=== PATIENT | male | born 1965 ===

== ENCOUNTER → 2021-03-11 12:42 | Outpatient (BNVA) | payer OTHER, SELFPAY | PROVIDERS: PCP Family Medicine; Visit Provider Psychiatry & Neurology Neurology | DX: G24.3 Spasmodic torticollis (principal) | CPT/HCPCS: 64616 ==

== ENCOUNTER → 2021-04-08 10:25 | Outpatient (BNVA) | payer OTHER, SELFPAY | PROVIDERS: PCP Family Medicine; Visit Provider Psychiatry & Neurology Neurology ==

== ENCOUNTER → 2021-06-13 13:23 | Outpatient (BNVA) | payer OTHER, SELFPAY | PROVIDERS: PCP Family Medicine; Visit Provider Psychiatry & Neurology Neurology | DX: G24.3 Spasmodic torticollis (principal) | CPT/HCPCS: 64616; J0585 ==

== ENCOUNTER → 2021-09-29 12:02 | Outpatient (BNVA) | payer OTHER, SELFPAY | PROVIDERS: PCP Family Medicine; Visit Provider Psychiatry & Neurology Neurology | DX: G24.3 Spasmodic torticollis (principal) | CPT/HCPCS: 64616; J0585 ==

== ENCOUNTER → 2022-01-02 12:53 | Outpatient (BNVA) | payer OTHER, SELFPAY | PROVIDERS: PCP Family Medicine; Visit Provider Psychiatry & Neurology Neurology | DX: G24.3 Spasmodic torticollis (principal) | CPT/HCPCS: 64616; J0585 ==

== ENCOUNTER → 2022-04-06 12:49 | Outpatient (BNVA) | payer OTHER, SELFPAY | PROVIDERS: PCP Family Medicine; Visit Provider Psychiatry & Neurology Neurology | DX: G24.3 Spasmodic torticollis (principal) | CPT/HCPCS: 64616; J0585 ==

== ENCOUNTER → 2022-07-05 12:24 | Outpatient (BNVA) | payer OTHER, SELFPAY | PROVIDERS: PCP Family Medicine; Visit Provider Psychiatry & Neurology Neurology | DX: G24.3 Spasmodic torticollis (principal) | CPT/HCPCS: 64616; J0585 ==

== ENCOUNTER 2022-10-17 07:36 | Outpatient (AMB) | payer OTHER, SELFPAY ==
--- NOTE | 2022-10-17 07:40 | MHC.OFFVIS ---
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 Side effects including spread of toxin effect, dysphagia, breathing difficulties , bronchitis etc was discussed in detail and the patient agreed to the procedure.An informed consent was obtained ??? Botulinum toxin type A 200units -was diluted with 4 cc of normal saline at a concentration of 25 units in 0.5cc saline. Lot number [id number] expiration 03/2025 ??? Muscles injected ???Left Splenius - 25 units each right levator 50 units right trapezius 25 units ??? left levator 75 units each Left CSM 25 units ? Total used 200 units PFSH Medical History HTN (hypertension) Tremors of nervous system Surgical History Hx of shoulder surgery Family History Father CAD (coronary artery disease) HTN (hypertension) Mother HTN (hypertension) Cancer Social History Alcohol intake: current Alcohol intake frequency: holidays/special occasions only Patient Tobacco Use Status: Never used Tobacco Physical Exam Vital Signs: Last Vital Signs Pulse 61 10/17/22 07:43 BP 112/70 10/17/22 07:43 Pulse Ox 100 10/17/22 07:43 Oxygen Delivery Method Room Air 10/17/22 07:43 Const General: cooperative, healthy appearing, comfortable and no acute distress Orientation/consciousness: patient oriented x3 Neck Other: right torticollis Neck tremors Neuro Other: antecollis and right torticollis head tremors General: patient oriented x3, gait normal, tone normal, moves all extremities and no focal motor deficits Office Procedures Botulinum toxin Injection 36684 - Dystonia Procedure code (CPT) selection complete Office Meds onabotulinumtoxinA Performing Provider: Nati Alvarado MD Administered by: Nati Alvarado MD on 10/17/22 08:04 Dose Route Admin Location Lot Number Expiration Date NDC Sw[employer] Service Technician 200 unit IM [id number] 03/22/25 3797-6623-11 ALLERGAN/BOTOX Comments: see HPI Assessment & Plan Assessment & Plan (1) Spasmodic torticollis: Code(s): G24.3 - Spasmodic torticollis Plan The patient tolerated the procedure well He will call with any side effects Orders: Orders AMB Botulinum toxin Injection - Patient Supplied Today G24.3 - Spasmodic torticollis Coding Level of Care Code Est Pt Level 1 (00940) Diagnoses Spasmodic torticollis G24.3 CPT Codes Botox Injection - Botox 4: 88035 - Dystonia ([id number])
[2022-10-17 07:43] VITALS: BP 112/70; PULSE 61; O2SAT 100
== END 2022-10-17 08:02 | disposition home or self-care (01) ==
PROVIDERS: Visit Provider Psychiatry & Neurology Neurology
DX: G24.3 Spasmodic torticollis (principal)
CPT/HCPCS: 64616

== ENCOUNTER → 2022-10-17 07:36 | Outpatient (BNVA) | payer OTHER, SELFPAY | PROVIDERS: Visit Provider Psychiatry & Neurology Neurology | DX: G24.3 Spasmodic torticollis (principal) | CPT/HCPCS: 64616; 99211; J0585 ==

== ENCOUNTER 2023-01-26 07:53 | Outpatient (AMB) | payer OTHER, SELFPAY ==
--- NOTE | 2023-01-26 08:02 | MHC.OFFVIS ---
Intake Vital Signs 01/26/23 08:03 Height 6 ft 1 in Weight 208 lb 9 oz BMI 27.5 BP 138/80 Blood Pressure Location Lt brachial Position Sitting Respiration 16 Pulse 61 Pulse Source Pulse Oximeter Pulse Oximetry (%) 98 Oxygen Delivery Method Room Air Intake Visit Reasons: Botox (pharm) - Confirmed Intake Note: Pt presents to the office for his Botox injections. Allergies No Known Allergies Allergy (Verified 01/26/23 08:02) Medication List - Last Reconciled 01/26/23 by Nati Alvarado MD COVID-19 vacc,mRNA(Pfizer)(PF) ([employer] COVID-19 Vaccine (PF)) 0.3 mL IM Q3W metoprolol succinate ER 50 mg PO DAILY onabotulinumtoxinA (Botox) 200 units to be injected to neck muscles; q 3mths sildenafil 50 mg PO HPI HPI Comments History of Present Illness Details 57 y/o male comes for treatment of his cervical dystonia ? Side effects including spread of toxin effect, dysphagia, breathing difficulties , bronchitis etc was discussed in detail and the patient agreed to the procedure.An informed consent was obtained ??? Botulinum toxin type A 200units -was diluted with 4 cc of normal saline at a concentration of 25 units in 0.5cc saline. Lot number [id number] expiration 05/2025 ??? Muscles injected ???Left Splenius - 25 units each right levator 50 units right trapezius 25 units ??? left levator 75 units each Left CSM 25 units ? Total used 200 units PFSH Medical History Tremors of nervous system HTN (hypertension) Surgical History Hx of shoulder surgery Family History Father CAD (coronary artery disease) HTN (hypertension) Mother HTN (hypertension) Cancer Social History Alcohol intake: current Alcohol intake frequency: holidays/special occasions only Patient Tobacco Use Status: Never used Tobacco Physical Exam Vital Signs: Last Vital Signs Pulse 61 01/26/23 08:03 Resp 16 01/26/23 08:03 BP 138/80 01/26/23 08:03 Pulse Ox 98 01/26/23 08:03 Oxygen Delivery Method Room Air 01/26/23 08:03 BMI result Body Mass Index 27.5 Const General: cooperative, healthy appearing, comfortable and no acute distress Orientation/consciousness: patient oriented x3 Neck Other: right torticollis Neck tremors Neuro Other: antecollis and right torticollis head tremors General: patient oriented x3, gait normal, tone normal, moves all extremities and no focal motor deficits Office Procedures Botulinum toxin Injection 04909 - Dystonia Procedure code (CPT) selection complete Office Meds onabotulinumtoxinA 200 unit solution for injection Performing Provider: Nati Alvarado MD Performing Location: [facility] [place] [facility] Administered by: Nati Alvarado MD on 01/26/23 08:32 Dose Route Admin Location Dispensed Lot Number Expiration Date [facility] Hem Inspector 200 unit IM 200 units [id number] 05/20/25 6892-5733-91 [employer]ERGAN/BOTOX Comments: see hpi Assessment & Plan Assessment & Plan (1) Spasmodic torticollis: Code(s): G24.3 - Spasmodic torticollis Plan The patient tolerated the procedure well He will call with any side effects Orders: Orders AMB Botulinum toxin Injection - Patient Supplied Today G24.3 - Spasmodic torticollis Coding Level of Care Code Est Pt Level 1 (37359) Diagnoses Spasmodic torticollis G24.3 CPT Codes Botox Injection - Botox 4: 72618 - Dystonia ([id number])
[2023-01-26 08:03] VITALS: BP 138/80; PULSE 61; RESP 16; O2SAT 98; BMI 27.5
== END 2023-01-26 08:24 | disposition home or self-care (01) ==
PROVIDERS: PCP Family Medicine; Visit Provider Psychiatry & Neurology Neurology
DX: G24.3 Spasmodic torticollis (principal)
CPT/HCPCS: 64616

== ENCOUNTER → 2023-01-26 07:53 | Outpatient (BNVA) | payer OTHER, SELFPAY | PROVIDERS: PCP Family Medicine; Visit Provider Psychiatry & Neurology Neurology | DX: G24.3 Spasmodic torticollis (principal) | CPT/HCPCS: 64616; 99211; J0585 ==